=== PATIENT | male | born 1970 | race Caucasian/White ===

== ENCOUNTER 2019-02-16 00:14 | Emergency (ER) | payer BC | END 2019-02-16 00:35 | disposition home or self-care (01) | LOC: MADERS 00:14 | DX: H92.02 Otalgia, left ear (principal); Z71.6 Tobacco abuse counseling; F17.210 Nicotine dependence, cigarettes, uncomplicated | CPT/HCPCS: 99406 ==

== ENCOUNTER 2019-08-21 10:24 | Emergency (ER) | payer BC, SELFPAY ==
[2019-08-21] MEDS ORDERED: Erythromycin Base 0.5% Ophth Oint 3.5 gm Tube ONE (11:38)
== END 2019-08-21 11:46 | disposition home or self-care (01) ==
LOC: MADERS 10:24
DX: H10.022 Other mucopurulent conjunctivitis, left eye (principal); F17.210 Nicotine dependence, cigarettes, uncomplicated
CPT/HCPCS: 99283